=== PATIENT | female | born 1985 | race Caucasian/White ===

== ENCOUNTER → 2018-01-05 | Emergency (ER) | payer MEDICAID ==
[~2018-01-05] VITALS: Ht 162.6 cm; Wt 60.0 kg
[~2018-01-05] MED LIST: AZIT250T PO; NO HOME MEDS; ibuprofen tablet 400 MG TABLET PO ONE
[2018-01-05 19:46] VITALS: BP 122/72
== END | disposition home or self-care (01) ==
LOC: ER 17:51
DX: J02.9 Acute pharyngitis, unspecified (principal); R52 Pain, unspecified; Z79.899 Other long term (current) drug therapy; Z56.0 Unemployment, unspecified
CPT/HCPCS: 99283

== ENCOUNTER 2018-07-10 10:41 | Emergency (ER) | payer MEDICAID ==
[~2018-07-10] VITALS: Ht 162.6 cm; Wt 75.3 kg
[~2018-07-10 10:41] MED LIST changes: -ibuprofen tablet 400 MG TABLET PO ONE
[2018-07-10 10:43] VITALS: BP 113/71
[2018-07-10] MEDS ORDERED: TRAM50TA2 PO (10:59)
[2018-07-10] MEDS ORDERED: AMOX-100 PO (10:59)
[2018-07-10] MEDS ORDERED: IBUP-1984 PO (10:59)
== END 2018-07-10 11:11 | disposition home or self-care (01) ==
LOC: ER 10:41
DX: K08.89 Other specified disorders of teeth and supporting structures (principal); Z56.0 Unemployment, unspecified
CPT/HCPCS: 99283

== ENCOUNTER 2019-04-06 11:29 | Emergency (ER) | payer MEDICAID ==
[~2019-04-06] VITALS: Ht 160 cm; Wt 71.0 kg
[2019-04-06 11:32] VITALS: BP 117/68
[2019-04-06] MEDS ORDERED: buprenorphine/naloxone 8MG-2MG SUBlingual film SL ONE (12:45)
== END 2019-04-06 13:13 | disposition home or self-care (01) ==
LOC: ER 11:30
DX: F11.90 Opioid use, unspecified, uncomplicated (principal); F17.200 Nicotine dependence, unspecified, uncomplicated; F10.99 Alcohol use, unspecified with unspecified alcohol-induced disorder; Z76.0 Encounter for issue of repeat prescription; Z56.0 Unemployment, unspecified; Z79.899 Other long term (current) drug therapy; Y90.9 Presence of alcohol in blood, level not specified
CPT/HCPCS: 99282

== ENCOUNTER 2019-10-09 07:41 | Inpatient (IN) | payer MEDICAID ==
[~2019-10-09] VITALS: Ht 162.6 cm; Wt 72.7 kg
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
[2019-10-09 08:27] LABS: URINE HCG NEGATIVE (NEG)
--- NOTE | 2019-10-09 08:27 | NUR ---
REPORTED RECOMMENDATIONS TO MD. KRISHNAN PT TO HAVE EKG AND MUCOMYST ORAL LOADING DOSE OF 140MG PER KG.
[2019-10-09 08:29] LABS: EOSINOPHILS # (AUTO) 0.1 X10'3 (0-0.9); EOSINOPHILS % (AUTO) 1.7 % (0-6); HEMATOCRIT 42.5 % (35.0-45.0); HEMOGLOBIN 14.2 g/dl (12.0-16.0); LYMPHOCYTES % (AUTO) 23.4 % (21-51); MEAN CORPUSCULAR HEMOGLOBIN 30.3 PG (27.0-31.0); MEAN CORPUSCULAR HGB CONC 33.4 g/dL (33.0-36.5); MEAN CORPUSCULAR VOLUME 90.9 FL (78-98); MEAN PLATELET VOLUME 8.3 FL (7.4-10.4); MONOCYTES # (AUTO) 0.3 X10'3 (0-0.9); MONOCYTES % (AUTO) 7.5 % (2-12); NEUTROPHILS # (AUTO) 2.8 X10'3 (1.8-7.7); NEUTROPHILS % (AUTO) 66.4 % (42-75); PLATELET COUNT 227 X10'3 (140-440); RED BLOOD COUNT 4.68 X10'6 (4.20-5.60); WHITE BLOOD COUNT 4.2 X10'3 (4.5-11.0)
[2019-10-09 08:35] LABS: CLARITY,URINE CLEAR (Clear); COLOR,URINE YELLOW (Yellow); GLUCOSE, URINE NEGATIVE (Neg); KETONES,URINE NEGATIVE (Neg); LEUKOCYTE ESTERASE ,URINE NEGATIVE (Neg); NITRITES, URINE NEGATIVE (Neg); OCCULT BLOOD,URINE NEGATIVE (Neg); PH,URINE 6.5 (4.8-8.0); PROTEIN,URINE NEGATIVE (Neg); UROBILINOGEN,URINE 0.2 E.U/dL (0.2-1.0)
[2019-10-09 08:39] LABS: UA COLLECTION TYPE CLN CATCH MIDSTREAM
[2019-10-09] MEDS ORDERED: acetylcysteine 200 MG/ml 4ml vial PO ONE (08:40)
[2019-10-09 08:46] LABS: URINE AMPHETAMINE SCREEN NEGATIVE (Neg); URINE BARBITUATE SCREEN NEGATIVE (Neg); URINE BENZODIAZEPINES SCREEN NEGATIVE (Neg); URINE CANNABINOID SCREEN NEGATIVE (Neg); URINE COCAINE SCREEN NEGATIVE (Neg); URINE METHADONE SCREEN NEGATIVE (Neg); URINE OPIATE SCREEN NEGATIVE (Neg); URINE PHENCYCLIDINE SCREEN NEGATIVE (Neg)
[2019-10-09 08:47] LABS: ALANINE AMINOTRANSFERASE 15 U/L (12-78); ALBUMIN 4.2 G/DL (3.4-5.0); ALBUMIN/GLOBULIN RATIO 1.1 (1.1-1.5); ALKALINE PHOSPHATASE 71 IU/L (46-116); ANION GAP 10 (8-16); ASPARTATE AMINO TRANSFERASE 19 U/L (10-37); BILIRUBIN,TOTAL 0.3 MG/DL (0.1-1.0); BLOOD UREA NITROGEN 8 MG/DL (7-18); BUN/CREATININE RATIO 10.7 (6.6-38.0); CALCIUM 8.8 MG/DL (8.5-10.1); CHLORIDE 103 MMOL/L (99-107); CREATININE 0.75 MG/DL (0.40-0.90); GLUCOSE 123 MG/DL (70-104); POTASSIUM 4.2 MMOL/L (3.5-5.1); SODIUM 139 MMOL/L (135-145); TOTAL CARBON DIOXIDE 26.1 MMOL/L (24-32); TOTAL PROTEIN 7.9 G/DL (6.4-8.2); eGFR 88 ML/MIN
[2019-10-09 08:49] LABS: ETHANOL < 0.010 GM/DL (0.0-0.010)
[2019-10-09] MEDS ORDERED: acetylcysteine 200mg/ml 30ml oral solution (vial) MC ONE (08:50)
[2019-10-09 08:53] LABS: ACETAMINOPHEN 107.7 UG/ML (10-30)
--- NOTE | 2019-10-09 08:56 | NUR ---
PT ATTEMPTED TO LEAVE AND WAS STOPPED IN THE ER PARKING LOT. PT STATES "THAT I THOUGHT I WOULD BE TREATED FASTER THAN THIS AND I HAVE NOT". EXPLAINED TO THE PT THAT IT WAS A PROCESS AND THAT SHE IS BEING TREATED. PT RETURNED TO ER16 WITHOUT INCEDENT, PT PLACED ON [facility] AND BELONGINGS REMOVED AND STORED IN OF PER PROTOCOL. BELONGINGS PLACED IN OF LOCKER #2
[2019-10-09] MEDS ORDERED: normal saline 1000ML IV soln IVB ONE (09:00)
[2019-10-09] MEDS ORDERED: BUPR1FIL3 SL (09:42)
[2019-10-09] MEDS ORDERED: LORA-268 PO (09:42)
[2019-10-09] MEDS ORDERED: PROP10TA10 PO (09:42)
[2019-10-09] MEDS ORDERED: PRAZ1CAP5 PO (09:42)
[2019-10-09] MEDS ORDERED: BUSP15TA7 PO (09:42)
[2019-10-09] MEDS ORDERED: potassium Cl 20 mEq SR tablet PO PRN (11:10)
[2019-10-09] MEDS ORDERED: ondansetron/PF 4mg/2ml inj IV PRN (11:10)
[2019-10-09] MEDS ORDERED: magnesium 4gm in 100ml NS 100 ML IV PRN (11:10)
[2019-10-09] MEDS ORDERED: potassium CL 10mEq/100ml bag 100 ML IV PRN ×2 (11:10)
[2019-10-09] MEDS ORDERED: magnesium Cl slow-release 64mg tablet PO PRN (11:10)
[2019-10-09] MEDS ORDERED: magnesium 2GM in 50ml NS 50 ML IV PRN (11:10)
--- NOTE | 2019-10-09 11:19 | NUR ---
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
--- NOTE | 2019-10-09 11:40 | NUR ---
I have received report from ED Mckayla, RN, and had the opportunity to ask questions and assume patient care.
[2019-10-09 11:55] VITALS: BP 119/79
[2019-10-09] MEDS: acetylcysteine sol. 200 MG/ML 4ml vial PO SCH ×4 (12:00→23:55)
[2019-10-09] MEDS: normal saline 1000ml 1,000 ML IV SCH ×2 (13:30→21:06)
[2019-10-09 15:00] VITALS: BP 117/56
[2019-10-09] MEDS: nicotine 21mg patch - 24 hr TD SCH (15:15)
--- NOTE | 2019-10-09 15:25 | NUR ---
promotional table spacer PAGER ID: [phone] MESSAGE: Janeth Pino, [id number] Javier Walker is anxious about her suboxone order. Please advise. Thank you! Magalie [phone]
[2019-10-09] MEDS: buprenorphine/naloxone 8MG-2MG SUBlingual film SL SCH (16:00)
[2019-10-09] MEDS ORDERED: buprenorphine/naloxone 8MG-2MG SUBlingual film SL ONE (16:35)
[2019-10-09 18:00] VITALS: BP 121/61
--- NOTE | 2019-10-09 18:00 | NUR ---
Problems reprioritized. Patient report given, questions answered & plan of care reviewed with RADHA Johnson.
--- NOTE | 2019-10-09 18:30 | NUR ---
Patient in room PCU 3017. I have received report from RADHA KWOK and had the opportunity to ask questions and assume patient care.
[2019-10-09] MEDS: K and/or MAG REPLACEMENT MC SCH (20:00)
[2019-10-09] MEDS: propranolol 10mg tablet PO SCH (20:00)
[2019-10-09] MEDS ORDERED: prazosin 1mg capsule PO SCH (21:00)
[2019-10-09] MEDS: LORazepam 0.5 MG tablet PO PRN (21:37)
[2019-10-09 22:00] VITALS: BP 131/78
--- NOTE | 2019-10-10 01:27 | NUR ---
PHARMACY MARC CAME UP AND TALK TO ME REGARDING ROUTE FOR ACETYLCYSTEINE. ROUTE ON [facility]) WHICH IS DEFAULT FOR THAT ORDER SO PHARMACY CAN NOT CHANGE. BUT CONFIRMED THAT IT IS PO DOSE.
[2019-10-10 02:00] VITALS: BP 104/62
[2019-10-10] MEDS: acetylcysteine 200mg/ml 30ml oral solution (vial) MC SCH ×2 (03:49→08:07)
[2019-10-10] MEDS: normal saline 1000ml 1,000 ML IV SCH (03:49)
[2019-10-10] MEDS ORDERED: acetylcysteine 200mg/ml 30ml oral solution (vial) MC SCH (04:00)
[2019-10-10 06:00] VITALS: BP 105/60
--- NOTE | 2019-10-10 06:18 | NUR ---
Problems reprioritized. Patient report given, questions answered & plan of care reviewed with RADHA FLYNN.
[2019-10-10 06:26] LABS: BASOPHILS # (AUTO) 0.1 X10'3 (0-0.2); BASOPHILS % (AUTO) 0.9 % (0-1); EOSINOPHILS # (AUTO) 0.3 X10'3 (0-0.9); EOSINOPHILS % (AUTO) 3.5 % (0-6); HEMATOCRIT 37.1 % (35.0-45.0); HEMOGLOBIN 12.4 g/dl (12.0-16.0); LYMPHOCYTES # (AUTO) 1.4 X10'3 (1.1-4.8); LYMPHOCYTES % (AUTO) 18.7 % (21-51); MEAN CORPUSCULAR HEMOGLOBIN 30.6 PG (27.0-31.0); MEAN CORPUSCULAR HGB CONC 33.3 g/dL (33.0-36.5); MEAN CORPUSCULAR VOLUME 91.7 FL (78-98); MEAN PLATELET VOLUME 8.3 FL (7.4-10.4); MONOCYTES # (AUTO) 0.3 X10'3 (0-0.9); MONOCYTES % (AUTO) 4.2 % (2-12); NEUTROPHILS # (AUTO) 5.3 X10'3 (1.8-7.7); NEUTROPHILS % (AUTO) 72.7 % (42-75); PLATELET COUNT 177 X10'3 (140-440); RED BLOOD COUNT 4.04 X10'6 (4.20-5.60); RED CELL DISTRIBUTION WIDTH 14.8 % (11.5-14.5); WHITE BLOOD COUNT 7.3 X10'3 (4.5-11.0)
[2019-10-10 06:37] LABS: ANION GAP 10 (8-16); BLOOD UREA NITROGEN 6 MG/DL (7-18); BUN/CREATININE RATIO 9.7 (6.6-38.0); CALCIUM 7.4 MG/DL (8.5-10.1); CHLORIDE 110 MMOL/L (99-107); CREATININE 0.62 MG/DL (0.40-0.90); GLUCOSE 96 MG/DL (70-104); MAGNESIUM 1.9 MG/DL (1.5-2.4); POTASSIUM 3.3 MMOL/L (3.5-5.1); SODIUM 141 MMOL/L (135-145); TOTAL CARBON DIOXIDE 21.4 MMOL/L (24-32); eGFR > 90 ML/MIN
--- NOTE | 2019-10-10 07:07 | NUR ---
Patient in room PCU 3017. I have received report from RADHA Johnson and had the opportunity to ask questions and assume patient care.
[2019-10-10] MEDS: K and/or MAG REPLACEMENT MC SCH (08:00)
[2019-10-10] MEDS: propranolol 10mg tablet PO SCH (08:00)
[2019-10-10] MEDS: buprenorphine/naloxone 8MG-2MG SUBlingual film SL SCH (08:09)
[2019-10-10] MEDS: nicotine 21mg patch - 24 hr TD SCH (08:11)
--- NOTE | 2019-10-10 08:16 | NUR ---
Patient refused Propanolol stating that it makes her feel dizzy.
[2019-10-10] MEDS: potassium Cl 20 mEq SR tablet PO PRN ×2 (09:08→13:17)
[2019-10-10 09:45] LABS: ALANINE AMINOTRANSFERASE 161 U/L (12-78); ALBUMIN 3.3 G/DL (3.4-5.0); ALBUMIN/GLOBULIN RATIO 1.1 (1.1-1.5); ALKALINE PHOSPHATASE 56 IU/L (46-116); ANION GAP 13 (8-16); ASPARTATE AMINO TRANSFERASE 218 U/L (10-37); BILIRUBIN,TOTAL 0.4 MG/DL (0.1-1.0); BLOOD UREA NITROGEN 5 MG/DL (7-18); BUN/CREATININE RATIO 7.2 (6.6-38.0); CHLORIDE 108 MMOL/L (99-107); CREATININE 0.69 MG/DL (0.40-0.90); GLUCOSE 120 MG/DL (70-104); POTASSIUM 3.6 MMOL/L (3.5-5.1); SODIUM 141 MMOL/L (135-145); TOTAL CARBON DIOXIDE 19.8 MMOL/L (24-32); TOTAL PROTEIN 6.3 G/DL (6.4-8.2); eGFR > 90 ML/MIN
[2019-10-10 09:54] LABS: ACETAMINOPHEN < 2.0 UG/ML (10-30)
[2019-10-10 11:00] VITALS: BP 102/68
--- NOTE | 2019-10-10 11:43 | NUR ---
Reported back to poison control, spoke with Niko, recommendation to continue 20 hours of Acetylcysteine treatment with 5 doses more and repeat LFTs. I will pass this recommendation onto hospitalist Dr. Lua.
[2019-10-10] MEDS: LORazepam 0.5 MG tablet PO PRN (13:17)
[2019-10-10 15:00] VITALS: BP 114/69
--- NOTE | 2019-10-10 15:44 | NUR ---
Per [facility], I called to find out about the reports, they stated that they faxed it over. They are resending it and that the patient may be released from the Mental health hold because she does not meet the criteria for a 5150 hold. I spoke with Emory Mcintosh. I also received the report and confirmed that she is released from the hold.
--- NOTE | 2019-10-10 15:51 | NUR ---
PAGER ID: [phone] MESSAGE: Dr. Bautista, Pt in [id number] on [facility] is released from 5150 hold. [facility] from [facility] was faxed over. Pt wants to leave [facility]. Stephanie Parikh RN please advise. [facility] [id number]
--- NOTE | 2019-10-10 16:10 | NUR ---
Patient left AMA. Patient was educated multiple times regarding the importance of remaining in the hospital for continued treatment for elevated liver enzymes due to the Tylenol overdose. She stated that she understands but she feels fine and she wanted to go home. She stated that she really wanted to be able to smoke. I removed her PIV and the catheter was intact. She stated that she would follow up with her psychiatrist with regards to her medicine changes and anxiety and that she would follow up with her liver enzyme. Patient signed the AMA formed and left on foot with her own clothes on. She was alert and oriented x4.
== END 2019-10-10 16:10 | disposition left against medical advice (07) | DRG 817 ==
LOC: ER 07:43 → ED HOLD 11:06 → EDBEDREQ 11:22 → PCU 3S 11:55
PROVIDERS: ADMIT Internal Medicine; ATTEND Internal Medicine
DX: T39.1X2A Poisoning by 4-Aminophenol derivatives, intentional self-harm, initial encounter (principal); F20.9 Schizophrenia, unspecified; F41.9 Anxiety disorder, unspecified; Z53.29 Procedure and treatment not carried out because of patient's decision for other reasons; R74.0 Nonspecific elevation of levels of transaminase and lactic acid dehydrogenase [LDH]; F17.210 Nicotine dependence, cigarettes, uncomplicated; F31.9 Bipolar disorder, unspecified; Y92.89 Other specified places as the place of occurrence of the external cause; Z79.899 Other long term (current) drug therapy
CPT/HCPCS: 36415; 80048; 80053; 80305; 80320; 80329; 81003; 81025; 83735; 85025; 85610; 87081; 93005; 99291; G0378; J7030

== ENCOUNTER 2021-04-27 13:44 | Emergency (ER) | payer MEDICAID ==
[~2021-04-27] VITALS: Ht 160 cm; Wt 72.7 kg
[~2021-04-27 13:44] MED LIST changes: -AZIT250T PO; +BUPR1FIL3 SL; +BUSP15TA7 PO; +LORA-268 PO; -NO HOME MEDS; +PRAZ1CAP5 PO; +PROP10TA10 PO
[2021-04-27 13:47] VITALS: BP 120/71
[2021-04-27] MEDS ORDERED: SERT-433 PO (13:57)
--- NOTE | 2021-04-27 14:02 | NUR ---
PT WITH HER DAD AND DAUGHTER 9YR OLD IN LOBBY, WAITING FOR A ROOM. DANILO JONES SAW PT IN TRIAGE.
[2021-04-27 14:33] LABS: BASOPHILS # (AUTO) 0.1 X10'3 (0-0.2); BASOPHILS % (AUTO) 1.4 % (0-1); EOSINOPHILS % (AUTO) 0.7 % (0-6); LYMPHOCYTES # (AUTO) 1.5 X10'3 (1.1-4.8); LYMPHOCYTES % (AUTO) 20.8 % (21-51); MEAN CORPUSCULAR HEMOGLOBIN 30.8 PG (27.0-31.0); MEAN CORPUSCULAR HGB CONC 34.8 g/dL (33.0-36.5); MEAN CORPUSCULAR VOLUME 88.4 FL (78-98); MEAN PLATELET VOLUME 8.4 FL (7.4-10.4); MONOCYTES # (AUTO) 0.4 X10'3 (0-0.9); MONOCYTES % (AUTO) 5.6 % (2-12); NEUTROPHILS # (AUTO) 5.1 X10'3 (1.8-7.7); NEUTROPHILS % (AUTO) 71.5 % (42-75); PLATELET COUNT 265 X10'3 (140-440); RED BLOOD COUNT 4.86 X10'6 (4.20-5.60); RED CELL DISTRIBUTION WIDTH 13.8 % (11.5-14.5); WHITE BLOOD COUNT 7.2 X10'3 (4.5-11.0)
[2021-04-27 14:34] LABS: URINE HCG NEGATIVE (NEG)
[2021-04-27 14:48] LABS: ALANINE AMINOTRANSFERASE 21 U/L (12-78); ALBUMIN 4.2 G/DL (3.4-5.0); ALBUMIN/GLOBULIN RATIO 0.9 (1.1-1.5); ALKALINE PHOSPHATASE 69 IU/L (46-116); ANION GAP 11 (8-16); ASPARTATE AMINO TRANSFERASE 14 U/L (10-37); BILIRUBIN,TOTAL 0.3 MG/DL (0.1-1.0); BLOOD UREA NITROGEN 11 MG/DL (7-18); BUN/CREATININE RATIO 12.9 (6.6-38.0); CALCIUM 8.9 MG/DL (8.5-10.1); CHLORIDE 104 MMOL/L (99-107); CREATININE 0.85 MG/DL (0.40-0.90); GLUCOSE 173 MG/DL (70-104); POTASSIUM 3.6 MMOL/L (3.5-5.1); SODIUM 141 MMOL/L (135-145); TOTAL CARBON DIOXIDE 25.6 MMOL/L (24-32); TOTAL PROTEIN 8.7 G/DL (6.4-8.2); eGFR 76 ML/MIN
[2021-04-27 14:50] LABS: CLARITY,URINE CLEAR (Clear); COLOR,URINE YELLOW (Yellow); GLUCOSE, URINE NEGATIVE (Neg); KETONES,URINE NEGATIVE (Neg); LEUKOCYTE ESTERASE ,URINE NEGATIVE (Neg); NITRITES, URINE NEGATIVE (Neg); OCCULT BLOOD,URINE NEGATIVE (Neg); PH,URINE 5.5 (4.8-8.0); PROTEIN,URINE NEGATIVE (Neg); UROBILINOGEN,URINE 0.2 E.U/dL (0.2-1.0)
[2021-04-27 14:54] LABS: URINE AMPHETAMINE SCREEN NEGATIVE (Neg); URINE BARBITUATE SCREEN NEGATIVE (Neg); URINE BENZODIAZEPINES SCREEN NEGATIVE (Neg); URINE CANNABINOID SCREEN NEGATIVE (Neg); URINE COCAINE SCREEN NEGATIVE (Neg); URINE METHADONE SCREEN NEGATIVE (Neg); URINE OPIATE SCREEN NEGATIVE (Neg); URINE PHENCYCLIDINE SCREEN NEGATIVE (Neg)
[2021-04-27 14:55] LABS: UA COLLECTION TYPE CLN CATCH MIDSTREAM
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
[2021-04-27] MEDS ORDERED: RISP3TAB63 PO (20:23)
[2021-04-27] MEDS ORDERED: GABA-530 PO (20:24)
[2021-04-28] MEDS ORDERED: sertraline 50mg tablet PO SCH (08:00)
[2021-04-28] MEDS: gabapentin 100mg capsule PO SCH ×3 (08:46→15:57)
[2021-04-28] MEDS ORDERED: LORazepam 2 mg/ml vial IM ONE (09:40)
[2021-04-28] MEDS ORDERED: haloperidol lactate 5mg/ml inj IM ONE (09:40)
[2021-04-28] MEDS ORDERED: diphenhydrAMINE 50 mg/ml inj IM ONE (09:40)
--- NOTE | 2021-04-28 09:50 | NUR ---
[facility]. SHE BECAME VISIBLY UPSET. DEMANDING TO USE A PHONE TO CALL HER FATHER. PT THEN CAME OUT OF ROOM IN AN ATTEMPT TO LEAVE, BUT WAS EASILY REDIRECTED BACK. PT THEN WILLINGLY TOOK IM MEDICATIONS AND HAS BEEN COOPERATIVE SINCE.
--- NOTE | 2021-04-28 10:00 | NUR ---
Pt brought to [facility] from main ER. Pt recently received an IM and has been sleeping in main ER and went right to sleep when she got here.
--- NOTE | 2021-04-28 12:00 | NUR ---
Pt has continued to sleep since being here. RR even and unlabored.
--- NOTE | 2021-04-28 13:00 | NUR ---
Pt is up eating her meal for lunch. She was kind and polite with ravi, Anahy.
--- NOTE | 2021-04-28 14:35 | NUR ---
Pt has slept since being admitted to [facility]. She was up for lunch then went right back to bed. RR even and unlabored. She appears comfortable.
--- NOTE | 2021-04-28 15:47 | NUR ---
Pt is asleep on her r side. Normal RR even and unlabored.
--- NOTE | 2021-04-28 16:31 | NUR ---
Pt continues to sleep. She is waiting for placement. Pt is resting on her left side; normal RR even and unlabored.
[2021-04-28] MEDS ORDERED: risperiDONE 0.5mg tablet PO SCH (21:00)
== END 2021-04-28 16:45 ==
LOC: ER 13:45
DX: F20.0 Paranoid schizophrenia (principal); F10.929 Alcohol use, unspecified with intoxication, unspecified; F31.9 Bipolar disorder, unspecified; Z56.0 Unemployment, unspecified; Z20.822 Contact with and (suspected) exposure to COVID-19
CPT/HCPCS: 36415; 80053; 80305; 80320; 81003; 81025; 84443; 85025; 87635; 96372; 99285; C9803; J1200; J1630; J2060

== ENCOUNTER 2021-05-15 10:31 | Inpatient (IN) | payer MEDICAID ==
[~2021-05-15] VITALS: Ht 160 cm; Wt 76.1 kg
[~2021-05-15 10:31] MED LIST changes: -BUPR1FIL3 SL; -BUSP15TA7 PO; +GABA-530 PO; -LORA-268 PO; -PRAZ1CAP5 PO; -PROP10TA10 PO; +RISP3TAB63 PO; +SERT-433 PO
[2021-05-15 10:55] LABS: CLARITY,URINE SLIGHTLY CLOUDY (Clear); GLUCOSE, URINE NEGATIVE (Neg); KETONES,URINE 40 mg/dl (Neg); LEUKOCYTE ESTERASE ,URINE TRACE (Neg); NITRITES, URINE NEGATIVE (Neg); OCCULT BLOOD,URINE LARGE (Neg); PH,URINE 5.5 (4.8-8.0); PROTEIN,URINE NEGATIVE (Neg); UA COLLECTION TYPE CLN CATCH MIDSTREAM; UROBILINOGEN,URINE 0.2 E.U/dL (0.2-1.0)
[2021-05-15 10:56] LABS: COLOR,URINE STRAW (Yellow)
[2021-05-15 10:56] LABS: BASOPHILS # (AUTO) 0.1 X10'3 (0-0.2); BASOPHILS % (AUTO) 0.9 % (0-1); EOSINOPHILS # (AUTO) 0.2 X10'3 (0-0.9); EOSINOPHILS % (AUTO) 2.3 % (0-6); HEMATOCRIT 42.9 % (35.0-45.0); HEMOGLOBIN 14.4 g/dl (12.0-16.0); LYMPHOCYTES # (AUTO) 1.4 X10'3 (1.1-4.8); MEAN CORPUSCULAR HEMOGLOBIN 30.4 PG (27.0-31.0); MEAN CORPUSCULAR HGB CONC 33.6 g/dL (33.0-36.5); MEAN CORPUSCULAR VOLUME 90.3 FL (78-98); MEAN PLATELET VOLUME 8.5 FL (7.4-10.4); MONOCYTES # (AUTO) 0.5 X10'3 (0-0.9); NEUTROPHILS # (AUTO) 6.6 X10'3 (1.8-7.7); NEUTROPHILS % (AUTO) 74.8 % (42-75); PLATELET COUNT 215 X10'3 (140-440); RED BLOOD COUNT 4.75 X10'6 (4.20-5.60); RED CELL DISTRIBUTION WIDTH 13.7 % (11.5-14.5); WHITE BLOOD COUNT 8.8 X10'3 (4.5-11.0)
[2021-05-15 10:57] LABS: URINE HCG NEGATIVE (NEG)
[2021-05-15 11:01] LABS: SQUAMOUS EPITHELIAL CELL,UR MANY /LPF (FEW)
[2021-05-15 11:03] LABS: ALANINE AMINOTRANSFERASE 21 U/L (12-78); ALBUMIN 4.3 G/DL (3.4-5.0); ALBUMIN/GLOBULIN RATIO 1.2 (1.1-1.5); ALKALINE PHOSPHATASE 59 IU/L (46-116); ANION GAP 13 (8-16); ASPARTATE AMINO TRANSFERASE 15 U/L (10-37); BILIRUBIN,TOTAL 0.5 MG/DL (0.1-1.0); BLOOD UREA NITROGEN 15 MG/DL (7-18); CALCIUM 8.8 MG/DL (8.5-10.1); CHLORIDE 104 MMOL/L (99-107); CREATININE 0.75 MG/DL (0.40-0.90); GLUCOSE 92 MG/DL (70-104); SODIUM 138 MMOL/L (135-145); TOTAL CARBON DIOXIDE 20.7 MMOL/L (24-32); TOTAL PROTEIN 7.8 G/DL (6.4-8.2); eGFR 87 ML/MIN
[2021-05-15 11:04] LABS: CELLULAR CAST 0-4 /LPF (NEGATIVE)
[2021-05-15 11:06] LABS: WBC,URINE 0-4 /HPF (0-4)
[2021-05-15 11:07] LABS: RBC,URINE 0-2 /HPF (0-2)
[2021-05-15 11:08] LABS: BACTERIA,URINE 1+ /HPF (Neg); URINE AMPHETAMINE SCREEN NEGATIVE (Neg); URINE BARBITUATE SCREEN NEGATIVE (Neg); URINE BENZODIAZEPINES SCREEN NEGATIVE (Neg); URINE CANNABINOID SCREEN NEGATIVE (Neg); URINE COCAINE SCREEN NEGATIVE (Neg); URINE METHADONE SCREEN NEGATIVE (Neg); URINE OPIATE SCREEN NEGATIVE (Neg); URINE PHENCYCLIDINE SCREEN NEGATIVE (Neg)
[2021-05-15 11:12] LABS: ETHANOL < 0.010 GM/DL (0.0-0.010)
--- NOTE | 2021-05-15 11:18 | NUR ---
Escorted pt to the Overflow area.
--- NOTE | 2021-05-15 11:30 | NUR ---
RN received pt. from main ER. Pt. changed into green scrubs. Pt. calm and cooperativeA&Ox3 (not to circumstance). Pt. c/o of feeling hungry and given sandwich.
--- NOTE | 2021-05-15 13:30 | NUR ---
Pt. sitting up in bed and eating lunch. Pt. observed laughing to herself at times.
[2021-05-15] MEDS ORDERED: NO HOME MEDS (14:36)
--- NOTE | 2021-05-15 15:00 | NUR ---
Pt.'s abnormal U/A reported to Dr. Steiner. No further action to be taken.
--- NOTE | 2021-05-15 15:30 | NUR ---
Pt. asleep in bed, lying on left side. Normal R&R of respirations observed.
[2021-05-15] MEDS ORDERED: acetaminophen 325mg tablet PO PRN (17:00)
[2021-05-15] MEDS ORDERED: mag hydrox/Alum hydrox/simeth 30ml oral suspension PO PRN (17:00)
[2021-05-15] MEDS ORDERED: loperamide 2mg capsule PO PRN (17:00)
[2021-05-15] MEDS ORDERED: magnesium hydroxide 30ml (MOM) UD suspension PO PRN (17:00)
[2021-05-15 17:14] VITALS: BP 112/57
[2021-05-15] MEDS ORDERED: NICOTINE POLACRILEX 2 MG LOZENGE BC PRN (17:15)
[2021-05-15] MEDS ORDERED: ARIP400S3 IM (17:43)
[2021-05-15] MEDS: acetaminophen 325mg tablet PO PRN (17:49)
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
[2021-05-15 19:41] VITALS: BP 106/58
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
[2021-05-16 07:20] VITALS: BP 127/69
[2021-05-16] MEDS: nicotine 21mg patch - 24 hr TD SCH (08:00)
[2021-05-16 09:13] LABS: CLARITY,URINE CLOUDY (Clear); COLOR,URINE YELLOW (Yellow); GLUCOSE, URINE NEGATIVE (Neg); KETONES,URINE TRACE mg/dl (Neg); LEUKOCYTE ESTERASE ,URINE TRACE (Neg); NITRITES, URINE NEGATIVE (Neg); OCCULT BLOOD,URINE LARGE (Neg); PROTEIN,URINE NEGATIVE (Neg); UROBILINOGEN,URINE 0.2 E.U/dL (0.2-1.0)
[2021-05-16 09:40] LABS: SQUAMOUS EPITHELIAL CELL,UR MANY /LPF (FEW); UA COLLECTION TYPE NON-SPECIFIED
[2021-05-16 09:41] LABS: BACTERIA,URINE 2+ /HPF (Neg); MUCUS STRANDS FEW /LPF (Neg)
[2021-05-16] MEDS: hydrOXYzine 25 MG tablet PO PRN ×2 (09:50→18:12)
[2021-05-16] MEDS: acetaminophen 325mg tablet PO PRN ×2 (10:00→17:23)
[2021-05-16 11:09] LABS: HEMOGLOBIN A1C 5.1 % (4.5-6.2)
[2021-05-16 11:13] LABS: CHOL/HDL RATIO 2.3 (0.00-4.99); CHOLESTEROL 179 MG/DL (0-200); HDL CHOLESTEROL 79 MG/DL (35-60); LDL CHOLESTEROL 78 MG/DL (50-100); TRIGLYCERIDES 83 MG/DL (20-135)
--- NOTE | 2021-05-16 17:47 | NUR ---
Nursing Progress Note: Legal hold: 5150 Client on involuntary status for GD Report received from KEENAN Azar with use of SBAR. Why are they here? Pt is a 35 year old female BIB EMS on a 5150 hold for GD. Patient does not know why the 5150 was written. Pt lives with her father but states "it is not going well." Pt has been having auditory hallucinations, hearing voices, and states this started about 5 years ago. Pt denies SI, HI, or visual hallucinations. Pt states she has a history of "brain damage" but denies any history of schizophrenia. She smokes tobacco, denies drug use. Negative tox screen. Hx of substance abuse, schizophrenia, anxiety, depression. Pt was recently at [facility] and is connected with the STAR Team. Assessment Pt. asleep at start of shift. Pt. awoke for breakfast and took all medications. Pt. observed pacing in the hallway and socially withdrawn. 1:1 done at bedside, when asked if she knows why she is here, pt. states, I dont know. Pt. denies all mental health symptoms. Pt. appears to be responding to internal stimuli. Pt. c/o of bilateral leg pain and received Tylenol 650mg with good effect. Pt. c/o of anxiety and received Atarax 50mg with moderate effect. Pt. appeared to have contaminated U/A and provider ordered repeat U/A. In afternoon pt. c/o of bilateral thigh pain rated 10/10 and given Tylenol 650mg. S/I, H/I: Denies A/VH: Denies Sleep: Pt. slept 7.25 hrs on NOC shift and appeared to take short intermittent nap throughout the day. ADL's: Independent Group attendance: No Were meds taken: Yes Any med S/E: None reported or observed. Mental Status Exam Appearance: Clean, neat wearing green unit scrubs. Eye contact: WNL Behavior: Cooperative, but guarded, appears internally preoccupied. Speech: WNL. Mood: Anxious Affect: Congruent with mood. Thought process: Thought blocking, Poverty of thought. Thought Content: Circumstantial. Cognition: A&O x3 Insight: Fair Judgment: Fair Interventions PRN's used: None Therapeutic interventions: Introduced self and established rapport, maintained a safe and therapeutic environment, provided clear and simple instructions, provided active listening and positive encouragement, monitored behavior and need for intervention, maintained Q 15min safety checks. Restraints/seclusion/emergency medication: N/A Justification of Continued Inpatient Treatment: Patient continues to improve, but still requires medication titration to prevent decompensation.
[2021-05-16 19:38] VITALS: BP 101/62
[2021-05-16] MEDS: aripiprazole 5mg tablet PO SCH (20:14)
[2021-05-16] MEDS: traZODone 50mg tablet PO PRN (20:28)
[2021-05-16] MEDS: gabapentin 100mg capsule PO SCH (20:37)
--- NOTE | 2021-05-17 01:09 | NUR ---
Nursing Progress Note: Legal hold: 5150 Client on involuntary status for GD Report received from RADHA Ventura with use of SBAR. Why are they here? Pt is a 35 year old female BIB EMS on a 5150 hold for GD. Patient does not know why the 5150 was written. Pt lives with her father but states "it is not going well." Pt has been having auditory hallucinations, hearing voices, and states this started about 5 years ago. Pt denies SI, HI, or visual hallucinations. Pt states she has a history of "brain damage" but denies any history of schizophrenia. She smokes tobacco, denies drug use. Negative tox screen. Hx of substance abuse, schizophrenia, anxiety, depression. Pt was recently at [facility] and is connected with the STAR Team. Assessment Pt asleep at shift change. Pt made minimal responses to questions. Pt denies A/V H. Pt asked if I would wake her for snack. Reminded pt of snack at 20:00, pt didn't wake up in time. Grabbed pt a snack. Noticed that one of the pts meds were input wrong, Gabapentin 400mg capsule give 100mg, pharmacy fixed this to 1 100mg capsule.Pt paced the hallway and sat on the floor waiting for her medication to be fixed. Pt took meds with no complications. Went to bed shortly after. S/I, H/I: Denies A/VH: Denies Sleep: See sleep hours ADL's: Independent Group attendance: No group in the evenings Were meds taken: Yes Any med S/E: None reported or observed. Mental Status Exam Appearance: Clean, neat wearing green unit scrubs. Eye contact: WNL Behavior: Cooperative, but guarded, appears internally preoccupied. Speech: clear Mood: Anxious Affect: Congruent with mood. Thought process: Thought blocking, Poverty of thought. Thought Content: Circumstantial. Cognition: A&O x3 Insight: Fair Judgment: Fair Interventions PRN's used: None Therapeutic interventions: Introduced self and established rapport, maintained a safe and therapeutic environment, provided clear and simple instructions, provided active listening and positive encouragement, monitored behavior and need for intervention, maintained Q 15min safety checks. Restraints/seclusion/emergency medication: N/A Justification of Continued Inpatient Treatment: Patient continues to improve, but still requires medication titration to prevent decompensation.
[2021-05-17] MEDS: nicotine 21mg patch - 24 hr TD SCH (07:03)
[2021-05-17] MEDS: gabapentin 100mg capsule PO SCH ×3 (07:54→20:20)
[2021-05-17 08:00] VITALS: BP 125/70
[2021-05-17] MEDS: acetaminophen 325mg tablet PO PRN ×2 (12:24→17:00)
[2021-05-17] MEDS: hydrOXYzine 25 MG tablet PO PRN (15:46)
--- NOTE | 2021-05-17 17:30 | NUR ---
Nursing Progress Note: Legal hold: 5150 Client on involuntary status for GD Report received from KEENAN Avilez with use of SBAR. Why are they here? Pt is a 35 year old female BIB EMS on a 5150 hold for GD. Patient does not know why the 5150 was written. Pt lives with her father but states "it is not going well." Pt has been having auditory hallucinations, hearing voices, and states this started about 5 years ago. Pt denies SI, HI, or visual hallucinations. Pt states she has a history of "brain damage" but denies any history of schizophrenia. She smokes tobacco, denies drug use. Negative tox screen. Hx of substance abuse, schizophrenia, anxiety, depression. Pt was recently at [facility] and is connected with the STAR Team. Assessment Pt. asleep at start of shift. RN received pt. awake and resting in bed. Pt. then observed pacing in hallway, sitting down next to doors and then go back to her room and repeating this multiple times. Pt. appears distraught and responding to internal stimuli, RN approached pt. and asked how she was feeling, pt. states, Im fine and disengages. Pt. took AM medications and ate her breakfast. 1:1 done at bedside, pt. continues to report, I dont know when asked why she is here. Pt. denies all mental health symptoms. Pt.s mood appeared to improve in the afternoon, pt. observed smiling and laughing to herself. Pt. continues to pace the hallway and sit down next to double door exit. Pt. c/o of bilateral leg pain in AM and afternoon and received Tylenol 650mg po with good effect. Pt. received Atarax 50mg po x1 in evening for anxiety with good effect. S/I, H/I: Denies A/VH: Denies but appears to be responding to internal stimuli. Sleep: Pt. slept 9 hrs on NOC shift and appeared to take short intermittent nap throughout the day. ADL's: Independent Group attendance: NA Were meds taken: Yes Any med S/E: None reported or observed. Mental Status Exam Appearance: Clean, neat wearing green unit scrubs. Eye contact: WNL Behavior: Cooperative, but guarded, appears internally preoccupied. Speech: WNL. Mood: Anxious. Affect: Congruent with mood. Thought process: Thought blocking, Poverty of thought. Appears to be responding to internal stimuli. Thought Content: Circumstantial. Cognition: A&O x1 Insight: Fair Judgment: Fair Interventions PRN's used: Tylenol 650mg po x2 and Atarax 50mg po x1 Therapeutic interventions: Introduced self and established rapport, maintained a safe and therapeutic environment, provided clear and simple instructions, provided active listening and positive encouragement, monitored behavior and need for intervention, maintained Q 15min safety checks. Restraints/seclusion/emergency medication: N/A Justification of Continued Inpatient Treatment: Patient continues to improve, but still requires medication titration to prevent decompensation.
[2021-05-17 19:21] VITALS: BP 117/81
[2021-05-17] MEDS: aripiprazole 5mg tablet PO SCH (20:20)
[2021-05-17] MEDS: traZODone 50mg tablet PO PRN (20:20)
--- NOTE | 2021-05-18 00:57 | NUR ---
Nursing Progress Note: Legal hold: 5150 Client on involuntary status for GD Report received from RADHA Maya with use of SBAR. Why are they here? Pt is a 35 year old female BIB EMS on a 5150 hold for GD. Patient does not know why the 5150 was written. Pt lives with her father but states "it is not going well." Pt has been having auditory hallucinations, hearing voices, and states this started about 5 years ago. Pt denies SI, HI, or visual hallucinations. Pt states she has a history of "brain damage" but denies any history of schizophrenia. She smokes tobacco, denies drug use. Negative tox screen. Hx of substance abuse, schizophrenia, anxiety, depression. Pt was recently at [facility] and is connected with the STAR Team. Assessment Pt. asleep at shift change. Pt woke up when this nurse awakened her for 1:1. Pt stated that she was fine and had nothing new to report.Denies A/V H. Pt stayed in bed until snack time, pt receives snack paces in hallway a few times and promptly goes back to room. Pt took medication w/o complications. Pt asked for Trazodone to help with sleep. Trazodone 100mg PRN given. Pt went to sleep shortly after. S/I, H/I: Denies A/VH: Denies Sleep: See sleep hours ADL's: Independent Group attendance: No group in the evenings Were meds taken: Yes Any med S/E: None reported or observed. Mental Status Exam Appearance: Clean, neat wearing green unit scrubs. Eye contact: WNL Behavior: Cooperative, but guarded, self isolates Speech: WNL. Mood: sleepy Affect: Congruent with mood. Thought process: Thought blocking, Poverty of thought. Thought Content: Circumstantial. Cognition: A&O x1 Insight: Fair Judgment: Fair Interventions PRN's used: Trazodone 100mg Therapeutic interventions: Introduced self and established rapport, maintained a safe and therapeutic environment, provided clear and simple instructions, provided active listening and positive encouragement, monitored behavior and need for intervention, maintained Q 15min safety checks. Restraints/seclusion/emergency medication: N/A Justification of Continued Inpatient Treatment: Patient continues to improve, but still requires medication titration to prevent decompensation.
[2021-05-18 07:00] VITALS: BP 105/63
[2021-05-18] MEDS: nicotine 21mg patch - 24 hr TD SCH (08:32)
[2021-05-18] MEDS: gabapentin 100mg capsule PO SCH ×3 (08:32→20:21)
[2021-05-18] MEDS: hydrOXYzine 25 MG tablet PO PRN ×2 (11:49→18:09)
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
[2021-05-18 19:33] VITALS: BP 124/76
[2021-05-18] MEDS: traZODone 50mg tablet PO PRN (20:21)
[2021-05-18] MEDS: aripiprazole 5mg tablet PO SCH (20:21)
[2021-05-19] MEDS: hydrOXYzine 25 MG tablet PO PRN ×2 (04:12→12:15)
--- NOTE | 2021-05-19 04:35 | NUR ---
Nursing Progress Note: Legal hold: 5150 Client on involuntary status for GD Report received from Herbie Murray RN with use of SBAR. Why are they here? Pt is a 35 year old female BIB EMS on a 5150 hold for GD. Patient does not know why the 5150 was written. Pt lives with her father but states "it is not going well." Pt has been having auditory hallucinations, hearing voices, and states this started about 5 years ago. Pt denies SI, HI, or visual hallucinations. Pt states she has a history of "brain damage" but denies any history of schizophrenia. She smokes tobacco, denies drug use. Negative tox screen. Hx of substance abuse, schizophrenia, anxiety, depression. Pt was recently at [facility] and is connected with the STAR Team. Assessment Patient was found laying in bed at beginning of shift. Patient only gave 1 word answers when nurse attempted 1:1. Patient self isolated in room all shift. Patient did not participate in snack or socialize with others. Patient took all night medications as well as Prn Atrax for anxiety. S/I, H/I: Denies A/VH: Denies Sleep: See sleep assessment ADL's: Independent Group attendance: No Group Meeting held today. Were meds taken: Yes, without hesitation. Any med S/E: None reported or observed. Mental Status Exam Appearance: Clean, neat wearing green unit scrubs. Eye contact: WNL Behavior: Cooperative, but guarded, self isolates Speech: Clear Mood: Flat. Affect: Congruent with mood. Thought process: Thought blocking, Poverty of thought. Thought Content: Circumstantial. Cognition: A&O x3 Insight: Fair Judgment: Fair Interventions PRN's used: Atarax Therapeutic interventions: Introduced self and established rapport, maintained a safe and therapeutic environment, provided clear and simple instructions, provided active listening and positive encouragement, monitored behavior and need for intervention, maintained Q 15min safety checks. Restraints/seclusion/emergency medication: N/A Justification of Continued Inpatient Treatment: Patient continues to improve, but still requires medication titration to prevent decompensation.
[2021-05-19 07:49] VITALS: BP 104/63
[2021-05-19] MEDS: gabapentin 100mg capsule PO SCH ×3 (08:33→21:04)
[2021-05-19] MEDS: nicotine 21mg patch - 24 hr TD SCH (08:35)
--- NOTE | 2021-05-19 14:03 | NUR ---
Initial: Pt admitted on 5150 w/ schizophrenia per EMR. Pt currently on Regular diet w/ 100% intake of meals meeting needs at this time. M 05/16 w/ PRN bowel care available. No nutrition intervention implemented at this time, will continue to monitor. Recs: 1. Continue Regular diet as tolerated 2. Bowel care per rx 3. Weekly wts Addendum: 05/19/21 at [address] Amended: Links added.
[2021-05-19] MEDS: acetaminophen 325mg tablet PO PRN (14:34)
--- NOTE | 2021-05-19 17:45 | NUR ---
Nursing Progress Note: Legal hold: 5250 Client on involuntary status for GD Report received from Herbie Espinosa. RN with use of SBAR. Why are they here? Pt is a 35 year old female BIB EMS on a 5150 hold for GD. Patient does not know why the 5150 was written. Pt lives with her father but states "it is not going well." Pt has been having auditory hallucinations, hearing voices, and states this started about 5 years ago. Pt denies SI, HI, or visual hallucinations. Pt states she has a history of "brain damage" but denies any history of schizophrenia. She smokes tobacco, denies drug use. Negative tox screen. Hx of substance abuse, schizophrenia, anxiety, depression. Pt was recently at [facility] and is connected with the STAR Team. Assessment Received patient while she was found sitting on the floor in front of the fire door near the Community Room. Patient states she was not able to sleep much last night, and reports she is very tired this morning. Patient took morning meds and 1:1 patient assessment completed. Patient is frequently ambulating in the jurado while looking down at the floor, with a fixed expression on her face. Asked patient if she was having pain or anxiety and she responded no. Patient reports she is hearing all kinds of voices and feels paranoid most of the day. Dr. Nieves saw patient and increased her Neurontin to 200mg PO tid. Dr. Nieves met with the patient and informed her he would be making medication changes later on today, and she will start on the medication regime tomorrow. Patient ambulates without speaking to anyone while walking down the jurado, and self isolates the rest of the time in her room, or sitting on the floor near the fire door. Informed patient not to sit on the dirty floor, as she would immediately get up, start ambulating, then would retreat back to the floor. Patient was given Atarax at 1215 after discussion on how to ask for medication, if available, when needed. Patient informed this RN that Atarax really helped. Patient c/o bilateral leg pain at 1430 and received Tylenol with good relief. Patient showered at 1530 and is resting in bed at this time. S/I, H/I: Denies A/VH: Patient reports hearing voices and feels paranoid most of the day. Sleep: Resting from 1600 for nap. ADL's: Independent, Took Shower today. Group attendance: No Group Meeting scheduled today. Were meds taken: Yes, without hesitation. Any med S/E: None reported or observed. Mental Status Exam Appearance: Clean, Showered, Neat Blonde hair in a bun, wearing green unit scrubs. Eye contact: WNL Behavior: Cooperative, Pleasant, Focused Speech: Clear Mood: Fixed Expression Affect: Congruent with mood. Thought process: Thought blocking, Poverty of thought. Thought Content: Circumstantial. Cognition: A&O x3 Insight: Fair Judgment: Fair Interventions PRN's used: Atarax @ 1215, Tylenol @ 1430. Therapeutic interventions: Introduced self and established rapport, maintained a safe and therapeutic environment, provided clear and simple instructions, provided active listening and positive encouragement, monitored behavior and need for intervention, maintained Q 15min safety checks. Restraints/seclusion/emergency medication: N/A Justification of Continued Inpatient Treatment: Patient continues to improve, but still requires medication titration to prevent decompensation.
[2021-05-19 19:13] VITALS: BP 100/68
[2021-05-19] MEDS: traZODone 50mg tablet PO PRN (21:03)
[2021-05-19] MEDS: aripiprazole 5mg tablet PO SCH (21:03)
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
[2021-05-20 07:30] VITALS: BP 100/64
[2021-05-20] MEDS: clonazePAM 0.5mg tablet PO SCH ×2 (08:04→13:06)
[2021-05-20] MEDS: nicotine 21mg patch - 24 hr TD SCH (08:05)
[2021-05-20] MEDS: gabapentin 100mg capsule PO SCH ×3 (08:05→20:44)
--- NOTE | 2021-05-20 15:40 | NUR ---
Nursing Progress Note: Legal hold: 5250 Client on involuntary status for GD Report received from RN with use of SBAR Why are they here? Pt is a 35 year old female BIB EMS on a 5150 hold for GD. Patient does not know why the 5150 was written. Pt lives with her father but states "it is not going well." Pt has been having auditory hallucinations, hearing voices, and states this started about 5 years ago. Pt denies SI, HI, or visual hallucinations. Pt states she has a history of "brain damage" but denies any history of schizophrenia. She smokes tobacco, denies drug use. Negative tox screen. Hx of substance abuse, schizophrenia, anxiety, depression. Pt was recently at [facility] and is connected with the STAR Team. Assessment Received patient in bed sleeping w/o distress at the beginning of the shift. Pt up and walking hallways before breakfast. Pt ate breakfast and took AM meds w/o issue. Pt calm. Polite and pleasant. She appears to be talking to herself at times and admitted to hearing voices. When asked what her discharge plan was,she stated she will not be going home to live with father, It wasnt working out. Pt tolerated AM assessments well and ate meals well. She participated in snack times. Pt spent time in her room and sat in jurado at times. Pt appears mildly anxious with a flat, constricted affect. Pt did not ask for PRN meds as of time of this note. S/I, H/I: Denies A/VH: Patient reports hearing voices Sleep: None this shift ADL's: Independent Group attendance: No Group Meeting scheduled today Were meds taken: Yes Any med S/E: None reported or observed Mental Status Exam Appearance: Clean in green scrubs Eye contact: Good Behavior: Cooperative, Pleasant, withdrawn Speech: Clear Mood: Mildly anxious Affect: Constricted Thought process: Thought blocking Thought Content: Circumstantial Cognition: A&O x3 Insight: Fair Judgment: Fair Interventions PRN's used: Therapeutic interventions: Introduced self and established rapport, maintained a safe and therapeutic environment, provided clear and simple instructions, provided active listening and positive encouragement, monitored behavior and need for intervention, maintained Q 15min safety checks. Restraints/seclusion/emergency medication: N/A Justification of Continued Inpatient Treatment: Patient continues to improve, but still requires medication titration to prevent decompensation.
[2021-05-20] MEDS: hydrOXYzine 25 MG tablet PO PRN (16:07)
--- NOTE | 2021-05-20 16:11 | NUR ---
PROBABLE CAUSE HEARING FOR 5250 GD WAS UPHELD
[2021-05-20] MEDS: acetaminophen 325mg tablet PO PRN (18:54)
[2021-05-20 19:40] VITALS: BP 105/58
[2021-05-20] MEDS: traZODone 50mg tablet PO PRN (20:44)
[2021-05-20] MEDS: aripiprazole 5mg tablet PO SCH (20:44)
--- NOTE | 2021-05-21 03:37 | NUR ---
Nursing Progress Note: Legal hold: 5250 Client on involuntary status for GD Report received from Zulma Roman RN with use of SBAR. Why are they here? Pt is a 35 year old female BIB EMS on a 5150 hold for GD. Patient does not know why the 5150 was written. Pt lives with her father but states "it is not going well." Pt has been having auditory hallucinations, hearing voices, and states this started about 5 years ago. Pt denies SI, HI, or visual hallucinations. Pt states she has a history of "brain damage" but denies any history of schizophrenia. She smokes tobacco, denies drug use. Negative tox screen. Hx of substance abuse, schizophrenia, anxiety, depression. Pt was recently at [facility] and is connected with the STAR Team. Assessment. Pt up pacing in jurado at start of shift. Observed sitting on floor by doors several times this shift. Ate snack in group room. Denies all mental health symptoms. Not observed responding to internal stimuli. Unable to state what she did today does not seem to remember 5250 hearing or did not want to talk about it. Pt alternated between pacing and sitting on floor. Cooperative with care took all meds went to bed. S/I, H/I: Denies A/VH: Denies Sleep: asleep at this time ADL's: Independent, Took Shower today. Group attendance: NA Were meds taken: Yes, without hesitation. Any med S/E: None reported or observed. Mental Status Exam Appearance: Clean, Showered, Neat Blonde hair in a bun, wearing green unit scrubs. Eye contact: Poor Behavior: Cooperative, Pleasant, Speech: Clear Mood: "OK" Affect: Blunted a little anxious Thought process: Thought blocking, Poverty of thought. Thought Content: Circumstantial. Cognition: A&O x3 Insight: Poor Judgment: Poor Interventions PRN's used: Trazodone Therapeutic interventions: Introduced self and established rapport, maintained a safe and therapeutic environment, provided clear and simple instructions, provided active listening and positive encouragement, monitored behavior and need for intervention, maintained Q 15min safety checks. Restraints/seclusion/emergency medication: N/A Justification of Continued Inpatient Treatment: Patient continues to improve, but still requires medication titration to prevent decompensation.
[2021-05-21] MEDS: hydrOXYzine 25 MG tablet PO PRN (04:20)
[2021-05-21 07:35] VITALS: BP 107/63
[2021-05-21] MEDS: gabapentin 100mg capsule PO SCH ×2 (07:55→13:52)
[2021-05-21] MEDS: clonazePAM 0.5mg tablet PO SCH ×2 (07:56→13:52)
[2021-05-21] MEDS: nicotine 21mg patch - 24 hr TD SCH (09:19)
--- NOTE | 2021-05-21 16:25 | NUR ---
Pt. consented to both Flu Vac, and COVID 19however Ezequiel wants pt. to recieve her COVID vac on outpatient visit.
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
[2021-05-21 19:43] VITALS: BP 111/69
[2021-05-21] MEDS: traZODone 50mg tablet PO PRN (20:18)
[2021-05-21] MEDS: aripiprazole 5mg tablet PO SCH (20:18)
[2021-05-21] MEDS: gabapentin 300mg capsule PO SCH (20:18)
--- NOTE | 2021-05-22 00:57 | NUR ---
Nursing Progress Note: Nataliya Cartagena Legal hold: 5250 Client on involuntary status for GD Report received from RADHA Maya with use of SBAR. Why are they here: Pt is a 35 year old female BIB EMS on a 5150 hold for GD. Patient does not know why the 5150 was written. Pt lives with her father but states "it is not going well." Pt has been having auditory hallucinations, hearing voices, and states this started about 5 years ago. Pt states she has a history of "brain damage" but denies any history of schizophrenia. She smokes tobacco, denies drug use. Negative Tox screen. Hx of substance abuse, schizophrenia, anxiety, depression. Pt was recently at [facility] and is connected with the STAR Team. Assessment Pt pacing in hallway at shift change. This nurse approached pt asking how she was feeling today, pt responded, "I'm fine, I'm fine." Pt continued to pace on and off until snack time. Pt ate snack by herself in community room. 1:1, Pt denies A/V H and stated that she enjoyed her dinner this evening and she just relaxed all day. Pt given Trazodone 100mg PRN along with regularly scheduled meds at evening med pass. Pt went to bed shortly after. S/I, H/I: Denies A/VH: denies Sleep: see sleep hours ADL's: Independent Group attendance: No group in the evenings Were meds taken: Yes Any med S/E: None reported or observed. Mental Status Exam Appearance: Young female, well nourished, and wearing green unit scrubs. Eye contact: Good Behavior: Cooperative, Focused Speech: Clear Mood: Anxious Affect: Congruent with mood. Thought process: snack and sleep Thought Content: Circumstantial. Cognition: A&O x3 Insight: Fair Judgment: Fair Interventions PRN's:Trazodone 100mg Therapeutic interventions: Introduced self and established rapport, maintained a safe and therapeutic environment, provided clear and simple instructions, provided active listening and positive encouragement, monitored behavior and need for intervention, maintained Q 15min safety checks. Restraints/seclusion/emergency medication: N/A Justification of Continued Inpatient Treatment: Patient continues to improve, but still requires medication titration to prevent decompensation.
[2021-05-22 07:21] VITALS: BP 103/55
[2021-05-22] MEDS: gabapentin 300mg capsule PO SCH ×3 (07:21→20:13)
[2021-05-22] MEDS: clonazePAM 0.5mg tablet PO SCH ×2 (07:22→13:39)
[2021-05-22] MEDS: nicotine 21mg patch - 24 hr TD SCH (07:22)
[2021-05-22] MEDS ORDERED: FLU VACC QS2021-22(6MOS UP)/PF 60 MCG/0.5 ML SYRINGE IM ONE (10:00)
[2021-05-22] MEDS ORDERED: COVID-19 VACC, MRNA(PFIZER)/PF--BNT162b2 syringe IMVAC ONE (10:00)
[2021-05-22] MEDS: hydrOXYzine 25 MG tablet PO PRN (11:14)
--- NOTE | 2021-05-22 16:21 | NUR ---
Nursing Progress Note: Nataliya Cartagena Legal hold: 5250 Client on involuntary status for GD Report received from RADHA Valenzuela with use of SBAR. Why are they here: Pt is a 35 year old female BIB EMS on a 5150 hold for GD. Patient does not know why the 5150 was written. Pt lives with her father but states "it is not going well." Pt has been having auditory hallucinations, hearing voices, and states this started about 5 years ago. Pt states she has a history of "brain damage" but denies any history of schizophrenia. She smokes tobacco, denies drug use. Negative Tox screen. Hx of substance abuse, schizophrenia, anxiety, depression. Pt was recently at [facility] and is connected with the STAR Team. Assessment Received patient pacing in the jurado and wrapped in a blanket. Pt. compliant with medication and 1:1 assessment completed at the bedside. Pt. denies SI, HI, AH, VH. Pt. reports she is here d/t my Dad he is making things up She reports her discharge plans are to go home, but my Dad changed the phone number. Reported sleep hours show less than 5 hrs; pt. reports awakening very early an unable to sleep. Pt. presents anxious. Pt. spent most of her day pacing the jurado and sitting on the floor near doorways. Freezing Machine Operator observed pt. respond to internal stimuli, PRN Atarax given. She ate her meals in the dining room, but continues to socially isolate. Pt. did attend group this shift. Pt. received her FluVac Lt. Deltoid, zero ASEs found. S/I, H/I: Denies A/VH: Denies Sleep:4.5 hrs per NOC, two naps ADL's: Independent Group attendance: Yes Were meds taken: Yes Any med S/E: None reported or observed. Mental Status Exam Appearance: Young female, well nourished, and wearing green unit scrubs. Eye contact: Good Behavior: Cooperative, Focused Speech: Clear Mood: Delusional Affect: Congruent with mood. Thought process: Going home Thought Content: Circumstantial. Cognition: A&O x3 Insight: Fair Judgment: Fair Interventions PRN's: Atarax Therapeutic interventions: Introduced self and established rapport, maintained a safe and therapeutic environment, provided clear and simple instructions, provided active listening and positive encouragement, monitored behavior and need for intervention, maintained Q 15min safety checks. Restraints/seclusion/emergency medication: N/A Justification of Continued Inpatient Treatment: Patient continues to improve, but still requires medication titration to prevent decompensation.
[2021-05-22 19:34] VITALS: BP 108/66
[2021-05-22] MEDS: traZODone 50mg tablet PO PRN (20:13)
[2021-05-22] MEDS: aripiprazole 5mg tablet PO SCH (20:13)
--- NOTE | 2021-05-23 00:11 | NUR ---
Nursing Progress Note: Nataliya Cartagena Legal hold: 5250 Client on involuntary status for GD Report received from RADHA Maya with use of SBAR. Why are they here: Pt is a 35 year old female BIB EMS on a 5150 hold for GD. Patient does not know why the 5150 was written. Pt lives with her father but states "it is not going well." Pt has been having auditory hallucinations, hearing voices, and states this started about 5 years ago. Pt states she has a history of "brain damage" but denies any history of schizophrenia. She smokes tobacco, denies drug use. Negative Tox screen. Hx of substance abuse, schizophrenia, anxiety, depression. Pt was recently at [facility] and is connected with the STAR Team. Assessment Recieved pt pacing in hallway. This nurse how the pt's day was going to which she responded, "fine." Pt went to bed shortly after. 1:1 with pt, pt denies A/V H. Pt was able to describe what she had for dinner and states that she attended group today with other cohorts but did not pay much attention. Pt isolates mostly to room and paces hallway with sitting on floor in front of double doors occasionally. Pt woke up for snacks at snack time. Pt took meds at med pass w/o complications. Pt requested Trazodone for sleep. Pt fell asleep shortly after. S/I, H/I: Denies A/VH: Denies Sleep:See sleep hours ADL's: Independent Group attendance:No group in the evenings Were meds taken: Yes Any med S/E: None reported or observed. Mental Status Exam Appearance: Young female, well nourished, and wearing green unit scrubs. Eye contact: Good Behavior: Cooperative, isolating Speech: Clear Mood:restless Affect: Congruent with mood. Thought process: Going home Thought Content: Circumstantial. Cognition: A&O x3 Insight: Fair Judgment: Fair Interventions PRN's:Trazodone 100mg Therapeutic interventions: Introduced self and established rapport, maintained a safe and therapeutic environment, provided clear and simple instructions, provided active listening and positive encouragement, monitored behavior and need for intervention, maintained Q 15min safety checks. Restraints/seclusion/emergency medication: N/A Justification of Continued Inpatient Treatment: Patient continues to improve, but still requires medication titration to prevent decompensation.
[2021-05-23] MEDS: gabapentin 300mg capsule PO SCH ×3 (07:10→20:20)
[2021-05-23] MEDS: clonazePAM 0.5mg tablet PO SCH ×2 (07:10→13:16)
[2021-05-23] MEDS: nicotine 21mg patch - 24 hr TD SCH (07:10)
[2021-05-23 07:33] VITALS: BP 101/40
--- NOTE | 2021-05-23 10:08 | NUR ---
Pt. attended group today. Each pt. scaled their mood and anxiety level today to practice scaling. We discussed how trauma/emotion remains in your body and how the brain send messages to the amygdala which can cause a flight/fight response. Pt. was in the group, appeared to be enjoying the information but spoke minimally. Overall demeanor was calm and pleasant. Listened intently to peers and this Mold Shaker but did not wish to join in withe conversation. Nataliya Palma, TILE AND MOTTLE SUPERVISOR
--- NOTE | 2021-05-23 17:14 | NUR ---
Nursing Progress Note: Legal hold: 5250 Client on involuntary status for GD Report received from KEENAN Valenzuela with use of SBAR. Why they are here: Pt is a 35 year old female BIB EMS on a 5150 hold for GD. Patient does not know why the 5150 was written. Pt lives with her father but states "it is not going well." Pt has been having auditory hallucinations, hearing voices, and states this started about 5 years ago. Pt states she has a history of "brain damage" but denies any history of schizophrenia. She smokes tobacco, denies drug use. Negative Tox screen. Hx of substance abuse, schizophrenia, anxiety, depression. Pt was recently at [facility] and is connected with the STAR Team. Assessment What has happened this shift: Patient is resting quietly in bed at the start of the shift. Awake prior to breakfast and paces in and out of her room with a blanket around her. Cooperative with 1:1 assessment and medications. Eats breakfast in the community room. After breakfast the patient continues to spend time pacing on the unit and in her room. Noted frequently talking and smiling to herself. Answers direct questions appropriately but does not engage in conversation. In the afternoon she continues to pace and watches TV for short periods of time. S/I, H/I: Denies A/VH: Denies but appears to be responding to internal stimuli Sleep: 0.5 hours in the morning. Brief resting periods in bed during the day. ADL's: Independent Group attendance: No Were meds taken: Yes Any med S/E: None observed or reported Mental Status Exam Appearance: Young female, clean with hair up and somewhat messy wearing green unit scrubs. Eye contact: Good Behavior: Cooperative, restless, guarded Speech: Clear, normal rate/ volume Mood: Good. Affect: Congruent Thought process: Linear Thought Content: Meeting needs Cognition: A&O x3 Insight: Fair Judgment: Fair Interventions PRN's: None Therapeutic interventions: Introduced self and established rapport, maintained a safe and therapeutic environment, provided clear and simple instructions, provided active listening and positive encouragement, monitored behavior and need for intervention, maintained Q 15min safety checks. Restraints/seclusion/emergency medication: N/A Justification of Continued Inpatient Treatment: Patient continues to improve, but still requires medication titration to prevent decompensation.
[2021-05-23] MEDS: hydrOXYzine 25 MG tablet PO PRN (18:38)
[2021-05-23 19:35] VITALS: BP 103/68
[2021-05-23] MEDS: traZODone 50mg tablet PO PRN (20:20)
[2021-05-23] MEDS: aripiprazole 5mg tablet PO SCH (20:20)
--- NOTE | 2021-05-24 02:18 | NUR ---
Nursing Progress Note: Legal hold: 5250 Client on involuntary status for GD Report received from RADHA Carter with use of SBAR. Why they are here: Pt is a 35 year old female BIB EMS on a 5150 hold for GD. Patient does not know why the 5150 was written. Pt lives with her father but states "it is not going well." Pt has been having auditory hallucinations, hearing voices, and states this started about 5 years ago. Pt states she has a history of "brain damage" but denies any history of schizophrenia. She smokes tobacco, denies drug use. Negative Tox screen. Hx of substance abuse, schizophrenia, anxiety, depression. Pt was recently at [facility] and is connected with the STAR Team. Assessment Pt pacing hallway at shift change with intense features. Pt approached for 1:1 pt states she was fine today and had nothing new to report. Pt denies A/V H even though pt was observed laughing to self in hallway while sitting on the floor. Pt asked for an anxiety medication, due to anxiety she said she was feeling. Pt took Hydroxyzine 50mg with good effect. Pt ate snack at snack time , mostly isolated to self. Pt took evening meds w/o complications. Pt went to bed shortly after but was sitting on hallway floor a couple hours later talking to aide. When asked if she was alright or needed anything pt stated that she couldn't sleep due to new roommate constantly talking to self. Patient was asked if she would like to move to a different room and the patient agreed. Patient moved to room 332/B. Patient was excited about new room and fell asleep almost immediately. S/I, H/I: Denies A/VH: Denies but appears to be responding to internal stimuli Sleep: See sleep hours ADL's: Independent Group attendance: No group Were meds taken: Yes Any med S/E: None observed or reported Mental Status Exam Appearance: Young female, clean with hair up and somewhat messy wearing green unit scrubs. Eye contact: Good Behavior: Cooperative, restless, guarded Speech: Clear, normal rate/ volume Mood: Good. Affect: Congruent Thought process: Linear Thought Content: Meeting needs Cognition: A&O x3 Insight: Fair Judgment: Fair Interventions PRN's: Hydroxyzine 50mg, Trazodone 100mg Therapeutic interventions: Introduced self and established rapport, maintained a safe and therapeutic environment, provided clear and simple instructions, provided active listening and positive encouragement, monitored behavior and need for intervention, maintained Q 15min safety checks. Restraints/seclusion/emergency medication: N/A Justification of Continued Inpatient Treatment: Patient continues to improve, but still requires medication titration to prevent decompensation.
[2021-05-24] MEDS: gabapentin 300mg capsule PO SCH ×3 (07:17→20:27)
[2021-05-24] MEDS: clonazePAM 0.5mg tablet PO SCH ×2 (07:17→13:23)
[2021-05-24] MEDS: nicotine 21mg patch - 24 hr TD SCH (07:17)
[2021-05-24 08:16] VITALS: BP 89/53
--- NOTE | 2021-05-24 12:58 | NUR ---
Cruz, [facility] STAR Team, came to see Nataliya. He reported she is no where near her baseline. He reported she was delusional about the mob being after her. She reported command auditory hallucinations from "Father God" telling her to pace the halls. She was also suspicious of her dad and thinks her dad and daughter are not really her dad and daughter. She also stated she does not think she is really herself also. Cruz reported in Feb she was doing well and had been working. She fired Dr Nash from [facility] when he would not prescribe her benzos and Strattera at her request. She then went to [facility] where she did get these medications and since then decompensated. CHRISTINA Bustos
[2021-05-24] MEDS ORDERED: risperiDONE 2mg tablet PO ONE (13:35)
--- NOTE | 2021-05-24 17:30 | NUR ---
Nursing Progress Note: Legal hold: 5250 Client on involuntary status for GD Report received from KEENAN Espinosa with use of SBAR. Why they are here: Pt is a 35 year old female BIB EMS on a 5150 hold for GD. Patient does not know why the 5150 was written. Pt lives with her father but states "it is not going well." Pt has been having auditory hallucinations, hearing voices, and states this started about 5 years ago. Pt states she has a history of "brain damage" but denies any history of schizophrenia. She smokes tobacco, denies drug use. Negative Tox screen. Hx of substance abuse, schizophrenia, anxiety, depression. Pt was recently at [facility] and is connected with the STAR Team. Assessment What has happened this shift: Patient is awake in her room at the start of the shift. Drinks coffee and paces the unit prior to breakfast. Noted talking to herself but she denies hearing voices or ever having AH. States she does not know why she is here, that she lives with her dad and he is somewhat confused. Eats breakfast in the community room and interact appropriately with staff and peers. Patient is somewhat withdrawn after breakfast. Paces the halls and community room and interacts very little with peers and staff. Answers direct questions and will engage in small talk but denies any mental health symptoms. After lunch patient takes a nap. In the later afternoon she spends time in common areas watching TV and pacing. S/I, H/I: Denies A/VH: Denies but appears to be responding to internal stimuli Sleep: takes a nap in the afternoon ADL's: Independent Group attendance: No Were meds taken: Yes Any med S/E: None observed or reported Mental Status Exam Appearance: Young female, clean with hair up and somewhat messy wearing green unit scrubs. Eye contact: Good Behavior: Cooperative, restless, guarded Speech: Clear, normal rate/ volume Mood: Good. Affect: Congruent Thought process: Linear Thought Content: Meeting needs Cognition: A&O x3 Insight: Fair Judgment: Fair Interventions PRN's: None Therapeutic interventions: Introduced self and established rapport, maintained a safe and therapeutic environment, provided clear and simple instructions, provided active listening and positive encouragement, monitored behavior and need for intervention, maintained Q 15min safety checks. Restraints/seclusion/emergency medication: N/A Justification of Continued Inpatient Treatment: Patient continues to improve, but still requires medication titration to prevent decompensation.
[2021-05-24 19:00] VITALS: BP 106/67
[2021-05-24] MEDS: risperiDONE 2mg tablet PO SCH (20:27)
[2021-05-24] MEDS: traZODone 50mg tablet PO PRN (20:27)
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
[2021-05-25] MEDS: hydrOXYzine 25 MG tablet PO PRN (05:29)
[2021-05-25 08:00] VITALS: BP 102/65
[2021-05-25] MEDS: gabapentin 300mg capsule PO SCH ×3 (09:00→20:22)
[2021-05-25] MEDS: risperiDONE 2mg tablet PO SCH ×2 (09:00→20:22)
[2021-05-25] MEDS: clonazePAM 0.5mg tablet PO SCH ×2 (09:00→13:28)
[2021-05-25] MEDS: nicotine 21mg patch - 24 hr TD SCH (09:01)
--- NOTE | 2021-05-25 17:41 | NUR ---
Nursing Progress Note: Legal hold: 5250 Client on involuntary status for GD Report received from KEENAN Martinez with use of SBAR. Why they are here: Mary reported she has PTSD as her "committed suicide in front of her and her 3 kids'. She explained that it was this time of year and that if left alone, "I will do whatever I need to do to just fall asleep and be free of pain." Assessment What has happened this shift: Pt is up walking the halls asking for the TV remote and a cup of coffee at the start of the shift. Pt is quiet and isolative throughout the day. She is polite with staff and peers. Pt continues to have a flat affect and poor eye contact. S/I, H/I: Denies A/VH: Denies but appears to be responding to internal stimuli Sleep: takes a nap in the afternoon ADL's: Independent Group attendance: No Were meds taken: Yes Any med S/E: None observed or reported Mental Status Exam Appearance: Young female, long hair wearing personal clothing Eye contact: Good Behavior: Cooperative, restless, guarded Speech: Clear, normal rate/ volume Mood: Good. Affect: Congruent Thought process: Linear Thought Content: Meeting needs Cognition: A&O x3 Insight: Fair Judgment: Fair Interventions PRN's: None Therapeutic interventions: Provided 1:1 assessment with active listening and positive encouragement, medication administration/education/monitoring, monitored behavior and need for intervention, maintained Q 15min safety checks. Restraints/seclusion/emergency medication: N/A Justification of Continued Inpatient Treatment: Patient continues to improve, but still requires medication titration to prevent decompensation.
[2021-05-25 19:41] VITALS: BP 117/64
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
[2021-05-26 07:39] VITALS: BP 108/70
--- NOTE | 2021-05-26 07:40 | NUR ---
Reassessment Pt currently on Regular diet w/ 100% intake of meals meeting needs at this time. LBM 05/24 w/ PRN bowel care available. No nutrition intervention implemented at this time, will continue to monitor. Recs: 1. Continue Regular diet as tolerated 2. Bowel care per rx 3. Weekly wts Addendum: 05/26/21 at [address] Amended: Links added.
[2021-05-26] MEDS: nicotine 21mg patch - 24 hr TD SCH (08:55)
[2021-05-26] MEDS: gabapentin 300mg capsule PO SCH ×3 (08:55→20:44)
[2021-05-26] MEDS: clonazePAM 0.5mg tablet PO SCH ×2 (08:55→13:29)
[2021-05-26] MEDS: risperiDONE 2mg tablet PO SCH ×2 (08:55→20:44)
[2021-05-26] MEDS: hydrOXYzine 25 MG tablet PO PRN ×2 (14:30→18:47)
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
[2021-05-26 20:00] VITALS: BP 109/79
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
[2021-05-27] MEDS: clonazePAM 0.5mg tablet PO SCH ×2 (07:40→13:00)
[2021-05-27] MEDS: gabapentin 300mg capsule PO SCH ×3 (07:40→20:49)
[2021-05-27] MEDS: risperiDONE 2mg tablet PO SCH ×2 (07:40→20:49)
[2021-05-27] MEDS: nicotine 21mg patch - 24 hr TD SCH (07:41)
[2021-05-27 08:00] VITALS: BP 99/52
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
[2021-05-27] MEDS: hydrOXYzine 25 MG tablet PO PRN (16:07)
[2021-05-27 19:00] VITALS: BP 97/71
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
[2021-05-28] MEDS: hydrOXYzine 25 MG tablet PO PRN ×2 (05:45→15:51)
[2021-05-28] MEDS: risperiDONE 0.5mg tablet PO SCH ×2 (07:15→19:43)
[2021-05-28] MEDS: gabapentin 300mg capsule PO SCH ×3 (07:15→19:43)
[2021-05-28] MEDS: clonazePAM 0.5mg tablet PO SCH ×2 (07:15→13:04)
[2021-05-28] MEDS: nicotine 21mg patch - 24 hr TD SCH (07:16)
[2021-05-28 07:34] VITALS: BP 95/70
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
[2021-05-28 19:05] VITALS: BP 110/61
[2021-05-28] MEDS: traZODone 50mg tablet PO PRN (19:43)
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
[2021-05-29] MEDS: clonazePAM 0.5mg tablet PO SCH ×2 (07:28→13:13)
[2021-05-29] MEDS: risperiDONE 0.5mg tablet PO SCH ×2 (07:28→20:10)
[2021-05-29] MEDS: gabapentin 300mg capsule PO SCH ×3 (07:28→20:10)
[2021-05-29] MEDS: nicotine 21mg patch - 24 hr TD SCH (07:29)
[2021-05-29 07:43] VITALS: BP 98/48
[2021-05-29] MEDS: hydrOXYzine 25 MG tablet PO PRN ×2 (10:55→20:10)
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
[2021-05-29 20:00] VITALS: BP 109/66
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
[2021-05-30] MEDS ORDERED: gabapentin 100mg capsule PO SCH (07:23)
[2021-05-30 08:00] VITALS: BP 100/62
[2021-05-30] MEDS: risperiDONE 0.5mg tablet PO SCH ×2 (08:11→20:16)
[2021-05-30] MEDS: clonazePAM 0.5mg tablet PO SCH ×2 (08:11→13:13)
[2021-05-30] MEDS: nicotine 21mg patch - 24 hr TD SCH (08:14)
[2021-05-30] MEDS: gabapentin 300mg capsule PO SCH ×2 (13:13→20:16)
[2021-05-30] MEDS: hydrOXYzine 25 MG tablet PO PRN (17:22)
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
[2021-05-30 19:09] VITALS: BP 100/65
[2021-05-30] MEDS: traZODone 50mg tablet PO PRN (20:16)
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
[2021-05-31 08:00] VITALS: BP 100/51
[2021-05-31] MEDS: risperiDONE 0.5mg tablet PO SCH ×2 (08:35→20:45)
[2021-05-31] MEDS: gabapentin 300mg capsule PO SCH ×3 (08:35→20:46)
[2021-05-31] MEDS: nicotine 21mg patch - 24 hr TD SCH (08:35)
[2021-05-31] MEDS: clonazePAM 0.5mg tablet PO SCH ×2 (08:36→13:28)
--- NOTE | 2021-05-31 14:08 | NUR ---
DISCHARGE PLAN Called Nataliya's dad, Gregorio (ph# [phone]), to inquire if she can return home. He reported she can return home. He did express concern that Nataliya had not been sleeping prior to admit. Informed him she is doing better, however, is still a little paranoid. Informed him that she will get discharged tomorrow when her hold is up. Scheduled her follow up with [facility] on 06/07/[address] Bhat. [facility] will follow up with her as well and have referred her to field based nursing. CHRISTINA Bustos
[2021-05-31] MEDS: hydrOXYzine 25 MG tablet PO PRN (16:10)
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
[2021-05-31 19:00] VITALS: BP 111/69
[2021-06-01] MEDS: traZODone 50mg tablet PO PRN (00:36)
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
[2021-06-01 07:04] VITALS: BP 96/60
[2021-06-01] MEDS ORDERED: aripiprazole 400mg suspension ER syringe IM SCH (08:00)
[2021-06-01] MEDS: gabapentin 300mg capsule PO SCH ×2 (08:25→13:26)
[2021-06-01] MEDS: clonazePAM 0.5mg tablet PO SCH ×2 (08:25→13:26)
[2021-06-01] MEDS: nicotine 21mg patch - 24 hr TD SCH (08:26)
[2021-06-01] MEDS: risperiDONE 0.5mg tablet PO SCH (08:26)
[2021-06-01] MEDS ORDERED: CLON0.5T4 PO (13:47)
[2021-06-01] MEDS ORDERED: HYDR-3686 PO (13:47)
[2021-06-01] MEDS ORDERED: gabapentin capsule PO (13:47)
[2021-06-01] MEDS ORDERED: RISP3TAB63 PO (13:47)
[2021-06-01] MEDS ORDERED: ARIP400S3 IM (13:47)
--- NOTE | 2021-06-01 14:24 | NUR ---
DISCHARGE NOTE Pt discharged home at 1424, escorted to the lobby by this RN, and was met by her father and daughter. Reviewed discharge instructions with patient and she verbalizes understanding on how to take her medications and to follow up with Dr. Bhat at [facility]. Pts belongings inventoried and returned to her. Abilaureny Maintena 400 mg IM injection administered in Right Gluteal today, which was noted on her discharge packet.
[2021-06-01] MEDS ORDERED: risperiDONE 2mg tablet PO SCH (20:00)
== END 2021-06-01 14:24 | disposition home or self-care (01) | DRG 750 ==
LOC: ER 10:31 → ED HOLD 16:35 → ADULT MH 16:36
PROVIDERS: ADMIT Psychiatry & Neurology Neurology with Special Qualifications in Child Neurology; ATTEND Psychiatry & Neurology Neurology with Special Qualifications in Child Neurology
DX: F20.9 Schizophrenia, unspecified (principal); F17.210 Nicotine dependence, cigarettes, uncomplicated; Z20.822 Contact with and (suspected) exposure to COVID-19; F41.9 Anxiety disorder, unspecified; Z79.899 Other long term (current) drug therapy; Z56.0 Unemployment, unspecified; Z23 Encounter for immunization; Z87.440 Personal history of urinary (tract) infections; Z91.51 Personal history of suicidal behavior; Z71.6 Tobacco abuse counseling
CPT/HCPCS: 0001A; 36415; 80053; 80061; 80305; 80320; 81001; 81025; 83036; 84443; 85025; 87081; 87635; 91300; 99285; C9803; Q0177